=== PATIENT | male | born 1990 | race African-American/Black ===

== ENCOUNTER 2016-08-03 10:10 | Outpatient (CLI) | payer MEDICAID ==
[~2016-08-03 10:10] MED LIST: BACTRIM DS 8001 TA1 PO; BACTRIM DS 8001 TAB PO; CONCERTA36 MG PO; DE-CHLOR DM 47473 ML PO; FLEXERIL10 MG PO; KEFLEX 500MG.500 MG PO; MEDROL 4MG. DOSE4 MG PO; MOTRIN600 MG PO; MUPIROCIN2% TP; NOMEDS; PREDNISONE 20MG20 MG PO; PRILOSEC20 M1 PO; THERAFLU1 PDS PO; VOLTAREN75 MG PO; ZOFRAN ODT4 MG PO
== END 2016-08-03 14:23 ==
LOC: ACC 10:10 → LAB 10:10 → ACC 14:23
DX: I26.99 Other pulmonary embolism without acute cor pulmonale (principal); B39.2 Pulmonary histoplasmosis capsulati, unspecified; Z79.01 Long term (current) use of anticoagulants; Z51.81 Encounter for therapeutic drug level monitoring
CPT/HCPCS: G0463

== ENCOUNTER 2016-10-07 09:57 | Emergency (ER) | payer MEDICAID ==
[~2016-10-07] VITALS: Ht 182.9 cm; Wt 117.9 kg
[2016-10-07] MEDS ORDERED: ELIQUIS5 MG PO (10:06)
--- NOTE | 2016-10-07 10:50 | Urgent Treatment Center Report ---
History of Present Issue Date/Time Seen by Provider 10/07/16 1045 Visit Reason Pt arrived:Walked Presenting Problem:YESTERDAY AFTERNOON PT WAS DOING SQUATS WITH WEIGHT WHEN HE FELT LOWER BACK POP AND IS NOW HAVING PAIN IN HIS RIHGT LEG Location if Accident: Onset of symptoms date/time:/ or onset unknown for:MEDICAL HX UNKNOWN Have you (or family members/close friends) recently traveled outside the [place]? N If Yes, where/when: Have you had exposure to infectious disease within the past month? TB? Other? Specify: Source patient, RN notes reviewed Exam Limitations no limitations Comment Patient was lifting weights yesterday. Was squatting 450# and felt a pop in his low back. Pain radiates down his right leg and leg feels numb. No prior history of low back injury. Was unable to get comfortable last night. No position was comfortable. Denies loss of bowel or bladder control. 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 ALLERGIES Coded Allergies: No Known Allergies (07/28/16) Home Medications Reported Medications Apixaban (Eliquis) 5 MG PO DAILY History Medical History General CAD? No Angina: Yes [place]: No Hypertension? No Hyperlipidemia? No CHF? No DVT? No PE? Yes COPD? No Asthma? No Anemia? No GERD? No Gastric ulcers? No GI Bleed? No Hernia? No Thyroid Problems? No Hypothyroidism? No CVA? No Seizures? No Diabetes? No Insulin Dependent: No Insulin Pump: No Home FSBS? No Renal Insuffiency? No UTI? No Stones? No BPH? No GB Disease: No Nephritic Syndrome? No Asplenia? No Hepatitis? No Sickle Cell Disease? No Arthritis? No Migraines? No Cataracts? No Glaucoma? No MRSA? No HIV? No TB? No Anxiety? No Depression? No Cancer? No More? Yes Additional hx: MYOCARDIITIS, SACRODOSIS Immunization HX DT/Tetanus 1-4 YRS Flu NEVER Pneumonia NEVER Surgical Hx Previous Surgery?Y HEART CATH Family History Family HX Diabetes No CAD No Hypertension No Hyperlipidemia No Cancer Yes TB No Social History Smoking Hx Smoker: Former Smoker Tobacco: No Packs/day < 1 Pack Alcohol Alcohol: No Review of Systems All Other Systems Reviewed and Negative Musculoskeletal see HPI, back pain Physical Exam Vital Signs Vital Signs Date Time Temp Pulse Resp B/P Pulse O2 O2 Flow FiO2 Ox Delivery Rate 10/07 1003 97.1 65 16 152/99 98 General Appearance normal appearance, no apparent distress Respiratory Status No: respiratory distress, chest symmetrical. Lung Sounds bilateral: normal breath sounds, lungs clear. Cardiovascular normal exam, regular rate/rhythm, no peripheral edema, no murmur Peripheral Pulses Pulses normal Yes Back no vertebral tenderness, strt leg raising(R)-ABNL, decreased range of motion, gait abnormality, muscle spasm, strt leg raising(L)-NML Extremities no calf tenderness, no pedal edema Neurologic alert, abnormal cerebellar tests Medical Decision Making LABS/Meds/Orders Pt receiving controlled substance in ED? No Results/Orders Current Medication Orders Sig/Rony Start time Last Medication Dose Route Stop Time Status Admin Methylprednisolone 0 .STK-MED ONE 10/07 1053 DC Acetate IM Methylprednisolone 0 .STK-MED ONE 10/07 1052 DC Acetate IM Dexamethasone Sodium 0 .STK-MED ONE 10/07 1050 DC Phosphate .ROUTE Dexamethasone Sodium 4 MG ONCE ONE 10/07 1045 DC 10/07 Phosphate IM 10/07 1046 1059 Methylprednisolone 80 MG ONCE ONE 10/07 1045 DC 10/07 Acetate IM 10/07 1046 1100 Orders Procedure Date/time Status LUMBAR SPINE 5 VIEWS 10/07 1009 Active XRAY/CT/US XRAY/CT/US XRAY L-spine XR interpretation by reviewed by me Xray Results no fracture seen, DDD L5/S1 Departure Departure Time of Disposition 1110 Disposition DC Home or Self Care(routine) Clinical Impression Primary Impression: Low back pain Secondary Impressions: Sciatica, right side Condition STABLE Referrals Darwin VALDEZ,Jae (Family): 2 Days-Call Office Patient Instructions DI for Low Back Pain Additional Instructions Rest. No lifting. Ice. Avoids NSAIDs due to Eliquis Discharge Counseling Counseled pt/family regarding diagnosis, test results, medications/RX, follow up needs Prescriptions Current Visit Scripts Methylprednisolone (Medrol Dose Luis) 4 MG PO UD #1 LUIS TAKE DIRECTED ON PACKAGING Cyclobenzaprine Hcl (Flexeril) 10 MG PO TID #30 TAB at 1115
[2016-10-07] MEDS ORDERED: FLEXERIL10 MG PO (11:13)
[2016-10-07] MEDS ORDERED: MEDROL 4MG. DOSE4 MG PO (11:13)
[2016-10-07 11:23] VITALS: BP 152/99
--- NOTE | 2016-10-07 13:20 | RADIOLOGY REPORT PS360 ---
LUMBAR SPINE 5 VIEWS COMPARISON: Lumbar spine 01/05/2015 HISTORY: Fell popping sensation in back TECHNIQUE: AP lateral and oblique views and spot view lumbosacral junction FINDINGS: There is some straightening of the normal curvature suggesting muscle spasm. All lumbar vertebrae appear intact and disc spaces are well maintained throughout. There is no pars defect. The SI joints appear normal. IMPRESSION: Findings of mild muscle spasm, no bony abnormality seen
== END 2016-10-07 11:24 | disposition home or self-care (01) ==
LOC: UTC 09:57
DX: M54.5 Low back pain (principal); M54.31 Sciatica, right side
CPT/HCPCS: J1040

== ENCOUNTER 2017-03-20 21:04 | Emergency (ER) | payer MEDICAID ==
[~2017-03-20] VITALS: Ht 182.9 cm; Wt 113.4 kg
[~2017-03-20 21:04] MED LIST changes: +ELIQUIS5 MG PO
--- NOTE | 2017-03-20 21:16 | Emergency Room Report ---
History of Present Illness Time Seen by 2102 Presenting Problem in Triage Pt arrived:Walked Presenting Problem:C/O MID CHEST PAIN INTERMITTENT IN NATURE WITH SOB AND BODY ACHES. 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 Y Clinical Suspician of Infection? Y Mental Status: 1 - Regular (Normal Baseline) Sepsis Risk:Possible Sepsis Risk Have you (or family members/close friends) recently traveled outside the [place]? N If Yes, where/when: Have you had exposure to infectious disease within the past month? N TB? Other? Specify: Source patient, RN notes reviewed, family, old records Exam Limitations no limitations Comment prod cough with congestion and ant chest pain which started tonight Cardiac Chest Pain Chest pain indicative of cardiac No Timing/Duration this evening Severity moderate ALLERGIES Coded Allergies: No Known Allergies (07/28/16) History Medical History General CAD? No Angina: Yes [place]: No Hypertension? No Hyperlipidemia? No CHF? No DVT? No PE? Yes COPD? No Asthma? No Anemia? No GERD? No Gastric ulcers? No GI Bleed? No Hernia? No Thyroid Problems? No Hypothyroidism? No CVA? No Seizures? No Diabetes? No Insulin Dependent: No Insulin Pump: No Home FSBS? No Renal Insuffiency? No End Stage Renal Disease? No UTI? No Stones? No BPH? No GB Disease: No Nephritic Syndrome? No Asplenia? No Hepatitis? No Sickle Cell Disease? No Arthritis? No Migraines? No Cataracts? No Glaucoma? No MRSA? No HIV? No TB? No Anxiety? No Depression? No Cancer? No More? Yes Additional hx: MYOCARDIITIS, SACRODOSIS Immunization Hx DT/Tetanus 1-4 YRS Flu NEVER Pneumonia NEVER Surgical Hx Previous Surgery?Y HEART CATH Family History Family Hx Diabetes No CAD No Hypertension No Hyperlipidemia No Cancer Yes TB No Social History Smoking Hx Smoker: Current Every Day Smoker Tobacco: Yes Type Cigarettes Packs/day < 1 Pack Alcohol Alcohol: No Drugs none Additionial History Additional History has hx of histo Review of Systems All Other Systems Reviewed and Negative Constitutional see HPI, fever Eyes denies drainage ENT denies: ear discharge, epistaxis, throat pain. Respiratory cough, denies shortness of breath, denies wheezing Cardiovascular chest pain, denies palpitations, denies syncope Gastrointestinal denies abdominal pain, denies diarrhea, denies vomiting Genitourinary denies: dysuria, frequency, hesitancy, hematuria. Musculoskeletal denies back pain, denies joint pain, denies joint swelling, denies neck pain Skin denies rash Psychiatric/Neurological denies headache, denies seizure Physical Exam Vital Signs Vital Signs Date Time Temp Pulse Resp B/P Pulse O2 O2 Flow FiO2 Ox Delivery Rate 03/20 2108 100.0 102 20 152/87 97 - WBC >12,000 or <4,000 or 10% bands? 2 or more SIRS Criteria Met? B/P:152/87 MAP:108 Creatinine >2.0? UA output<0.5ml/kg/hr for 2 hrs? Platelet count >100,000? Lactate >2.0mmol/1? INR >1.2 or PTT > than 60 sec? Evidence of Organ Dysfunction? Provider documented clinical suspician of infection? Y Sepsis Criteria Count: 2 Sepsis Risk: Possible Sepsis Risk General Appearance no apparent distress Eye Exam - bilateral eye PERRL, bilateral eye EOMI Ear, Nose, Throat normal ENT inspection Neck supple Respiratory Status No: respiratory distress. Lung Sounds bilateral: rhonchi. 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 No Results/Orders Laboratory Tests 03/20/172114: Sodium 141, Potassium 3.3 L, Chloride 104, Carbon Dioxide 26, BUN 12, Creatinine 1.3, Estimated Creat Clear 139, Estimated GFR (MDRD) 67, Glucose 106, Calcium 8.4 L, Total Bilirubin 0.6, AST 29, ALT 33, Alkaline Phosphatase 150 H , Creatine Kinase 192, CK-MB (CK-2) Rel Index 0.3, CK and CKMB Interp < 0.5, Troponin I < 0.02, Total Protein 7.5, Albumin 3.7, Globulin 3.8 H, Albumin/ Globulin Ratio 1.0 L, WBC 13.2 H, RBC 5.73, Hgb 16.3, Hct 47.1, MCV 82.3, RDW 12.7, Plt Count 190, MPV 8.0, Gran % 83.2 H, Gran # 11.0 H, Lymphocytes % 10.1 , Monocytes % 4.9, Eosinophils % 1.4, Basophils % 0.4, Lymphocytes # 1.3, Monocytes # 0.6, Eosinophils # 0.2, Basophils # 0.1, PUBS MCHC 34.7, MCH 28.5 Current Medication Orders Sig/Rony Start time Last Medication Dose Route Stop Time Status Admin Acetaminophen 0 .STK-MED ONE 03/20 2159 DC PO Ceftriaxone Sodium 0 .STK-MED ONE 03/20 2146 DC IV Levofloxacin 0 .STK-MED ONE 03/20 2146 DC .ROUTE Methylprednisolone 0 .STK-MED ONE 03/20 2146 DC Sodium Succinate .ROUTE Sodium Chloride 50 ML .STK-MED ONE 03/20 2146 DC IV Acetaminophen 650 MG ONCE ONE 03/20 2145 DC 03/20 PO 03/20 Ceftriaxone Sodium 1 GM ONCE ONE 03/20 2145 AC 03/20 Sodium Chloride 50 ML IV 03/20 Levofloxacin 500 MG ONCE ONE 03/20 2145 DC 03/20 PO 03/20 Methylprednisolone 125 MG ONCE ONE 03/20 2145 DC 03/20 Sodium Succinate IV 03/20 Aspirin 324 MG ONCE ONE 03/20 2115 DC 03/20 PO 03/20 Sodium Chloride 10 ML PRN PRN 03/20 2115 AC IV 03/21 2108 Orders Procedure Date/time Status CHEST(2 VIEWS-NOT PORTABLE) 03/20 2108 Active IV SALINE LOCK 03/20 2108 Active 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 ST/Twave chgs XRAY/CT/US XRAY/CT/US XRAY chest XR interpretation by reviewed by Xray Results abnormal (histo) Departure Departure Time of Disposition 2207 Disposition DC Home or Self Care(routine) Clinical Impression Primary Impression: Bronchitis Condition STABLE Referrals Jae Granados MD (Family) Patient Instructions DI for Cough -- Adult Additional Instructions use meds and fluids and see pcp for follow up Discharge Counseling Counseled pt/family regarding diagnosis, test results, medications/RX, follow up needs Prescriptions Current Visit Scripts Azithromycin (Zithromycin (Z-SOBEIDA) 250MG Tab) 250 MG PO DAILY #6 TAB TAKE TWO (2) TABLETS ON DAY 1, THEN ONE (1) TABLET DAY #2 THRU #5 Prednisone (Prednisone 20MG) 20 MG PO BID #10 TAB BENZONATATE (Benzonatate) 100 MG PO TID #15 CAP ED Critical Care Critical Care No at 2210
--- NOTE | 2017-03-20 21:16 | Emergency Room Report ---
History of Present Illness Time Seen by 2102 Presenting Problem in Triage Pt arrived:Walked Presenting Problem:C/O MID CHEST PAIN INTERMITTENT IN NATURE WITH SOB AND BODY ACHES. 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 Y Clinical Suspician of Infection? Y Mental Status: 1 - Regular (Normal Baseline) Sepsis Risk:Possible Sepsis Risk Have you (or family members/close friends) recently traveled outside the [place]? N If Yes, where/when: Have you had exposure to infectious disease within the past month? N TB? Other? Specify: Source patient, RN notes reviewed, family, old records Exam Limitations no limitations Comment prod cough with congestion and ant chest pain which started tonight Cardiac Chest Pain Chest pain indicative of cardiac No Timing/Duration this evening Severity moderate ALLERGIES Coded Allergies: No Known Allergies (07/28/16) History Medical History General CAD? No Angina: Yes [place]: No Hypertension? No Hyperlipidemia? No CHF? No DVT? No PE? Yes COPD? No Asthma? No Anemia? No GERD? No Gastric ulcers? No GI Bleed? No Hernia? No Thyroid Problems? No Hypothyroidism? No CVA? No Seizures? No Diabetes? No Insulin Dependent: No Insulin Pump: No Home FSBS? No Renal Insuffiency? No End Stage Renal Disease? No UTI? No Stones? No BPH? No GB Disease: No Nephritic Syndrome? No Asplenia? No Hepatitis? No Sickle Cell Disease? No Arthritis? No Migraines? No Cataracts? No Glaucoma? No MRSA? No HIV? No TB? No Anxiety? No Depression? No Cancer? No More? Yes Additional hx: MYOCARDIITIS, SACRODOSIS Immunization Hx DT/Tetanus 1-4 YRS Flu NEVER Pneumonia NEVER Surgical Hx Previous Surgery?Y HEART CATH Family History Family Hx Diabetes No CAD No Hypertension No Hyperlipidemia No Cancer Yes TB No Social History Smoking Hx Smoker: Current Every Day Smoker Tobacco: Yes Type Cigarettes Packs/day < 1 Pack Alcohol Alcohol: No Drugs none Additionial History Additional History has hx of histo Review of Systems All Other Systems Reviewed and Negative Constitutional see HPI, fever Eyes denies drainage ENT denies: ear discharge, epistaxis, throat pain. Respiratory cough, denies shortness of breath, denies wheezing Cardiovascular chest pain, denies palpitations, denies syncope Gastrointestinal denies abdominal pain, denies diarrhea, denies vomiting Genitourinary denies: dysuria, frequency, hesitancy, hematuria. Musculoskeletal denies back pain, denies joint pain, denies joint swelling, denies neck pain Skin denies rash Psychiatric/Neurological denies headache, denies seizure Physical Exam Vital Signs Vital Signs Date Time Temp Pulse Resp B/P Pulse O2 O2 Flow FiO2 Ox Delivery Rate 03/20 2108 100.0 102 20 152/87 97 - WBC >12,000 or <4,000 or 10% bands? 2 or more SIRS Criteria Met? B/P:152/87 MAP:108 Creatinine >2.0? UA output<0.5ml/kg/hr for 2 hrs? Platelet count >100,000? Lactate >2.0mmol/1? INR >1.2 or PTT > than 60 sec? Evidence of Organ Dysfunction? Provider documented clinical suspician of infection? Y Sepsis Criteria Count: 2 Sepsis Risk: Possible Sepsis Risk General Appearance no apparent distress Eye Exam - bilateral eye PERRL, bilateral eye EOMI Ear, Nose, Throat normal ENT inspection Neck supple Respiratory Status No: respiratory distress. Lung Sounds bilateral: rhonchi. 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 No Results/Orders Laboratory Tests 03/20/172114: Sodium 141, Potassium 3.3 L, Chloride 104, Carbon Dioxide 26, BUN 12, Creatinine 1.3, Estimated Creat Clear 139, Estimated GFR (MDRD) 67, Glucose 106, Calcium 8.4 L, Total Bilirubin 0.6, AST 29, ALT 33, Alkaline Phosphatase 150 H , Creatine Kinase 192, CK-MB (CK-2) Rel Index 0.3, CK and CKMB Interp < 0.5, Troponin I < 0.02, Total Protein 7.5, Albumin 3.7, Globulin 3.8 H, Albumin/ Globulin Ratio 1.0 L, WBC 13.2 H, RBC 5.73, Hgb 16.3, Hct 47.1, MCV 82.3, RDW 12.7, Plt Count 190, MPV 8.0, Gran % 83.2 H, Gran # 11.0 H, Lymphocytes % 10.1 , Monocytes % 4.9, Eosinophils % 1.4, Basophils % 0.4, Lymphocytes # 1.3, Monocytes # 0.6, Eosinophils # 0.2, Basophils # 0.1, PUBS MCHC 34.7, MCH 28.5 Current Medication Orders Sig/Rony Start time Last Medication Dose Route Stop Time Status Admin Acetaminophen 0 .STK-MED ONE 03/20 2159 DC PO Ceftriaxone Sodium 0 .STK-MED ONE 03/20 2146 DC IV Levofloxacin 0 .STK-MED ONE 03/20 2146 DC .ROUTE Methylprednisolone 0 .STK-MED ONE 03/20 2146 DC Sodium Succinate .ROUTE Sodium Chloride 50 ML .STK-MED ONE 03/20 2146 DC IV Acetaminophen 650 MG ONCE ONE 03/20 2145 DC 03/20 PO 03/20 Ceftriaxone Sodium 1 GM ONCE ONE 03/20 2145 AC 03/20 Sodium Chloride 50 ML IV 03/20 Levofloxacin 500 MG ONCE ONE 03/20 2145 DC 03/20 PO 03/20 Methylprednisolone 125 MG ONCE ONE 03/20 2145 DC 03/20 Sodium Succinate IV 03/20 Aspirin 324 MG ONCE ONE 03/20 2115 DC 03/20 PO 03/20 Sodium Chloride 10 ML PRN PRN 03/20 2115 AC IV 03/21 2108 Orders Procedure Date/time Status CHEST(2 VIEWS-NOT PORTABLE) 03/20 2108 Active IV SALINE LOCK 03/20 2108 Active 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 ST/Twave chgs XRAY/CT/US XRAY/CT/US XRAY chest XR interpretation by reviewed by Xray Results abnormal (histo) Departure Departure Time of Disposition 2207 Disposition DC Home or Self Care(routine) Clinical Impression Primary Impression: Bronchitis Condition STABLE Referrals Jae Granados MD (Family) Patient Instructions DI for Cough -- Adult Additional Instructions use meds and fluids and see pcp for follow up Discharge Counseling Counseled pt/family regarding diagnosis, test results, medications/RX, follow up needs Prescriptions Current Visit Scripts Azithromycin (Zithromycin (Z-SOBEIDA) 250MG Tab) 250 MG PO DAILY #6 TAB TAKE TWO (2) TABLETS ON DAY 1, THEN ONE (1) TABLET DAY #2 THRU #5 Prednisone (Prednisone 20MG) 20 MG PO BID #10 TAB BENZONATATE (Benzonatate) 100 MG PO TID #15 CAP ED Critical Care Critical Care No at 2210
[2017-03-20 21:31] LABS: HEMOGLOBIN 16.3 g/dL (14.1-18.0); LYMPH # 1.3 K/mm3 (0.7-4.5); LYMPH % 10.1 % (10-50)
[2017-03-20 21:52] LABS: BUN 12 mg/dL (7-18)
[2017-03-20 21:53] LABS: GFR (ESTIMATED) 67 ML/MIN (>60)
[2017-03-20] MEDS ORDERED: TESSALON PERLE100 MG PO (22:09)
[2017-03-20] MEDS ORDERED: PREDNISONE 20MG20 MG PO (22:09)
[2017-03-20] MEDS ORDERED: ZITHROMAX Z PA250 MG PO (22:09)
[2017-03-20 22:20] VITALS: BP 153/79
--- NOTE | 2017-03-21 05:23 | RADIOLOGY REPORT PS360 ---
CHEST(2 VIEWS-NOT PORTABLE) HISTORY: C/O CHEST PAIN ORDERING PHYSICIAN: Tania Davis MD PATIENT AGE: 27 years COMPARISON: 07/28/2016 FINDINGS: Unremarkable cardiovascular structures. There is vascular crowding in the lung bases. This had a similar appearance on the previous exam. No lobar consolidation or collapse. No significant change small bilateral pulmonary nodules recently described on chest CT.. No acute bony findings IMPRESSION: No change, no acute finding. Scattered small bilateral pulmonary nodules unchanged
[2017-04-02] MEDS ORDERED: IBUPROFEN800 MG PO (12:30)
== END 2017-03-20 22:21 | disposition home or self-care (01) ==
LOC: ER 21:04
PROVIDERS: Emergency Medicine
DX: J20.9 Acute bronchitis, unspecified (principal); Z72.0 Tobacco use

== ENCOUNTER → 2017-06-24 | Outpatient (CLI) | payer MEDICAID ==
[~2017-06-24] MED LIST changes: +IBUPROFEN800 MG PO; +TESSALON PERLE100 MG PO; +ZITHROMAX Z PA250 MG PO
--- NOTE | 2017-06-25 08:59 | RADIOLOGY REPORT PS360 ---
MRI-UP EXT OTH THN JNT W/O-RT CLINICAL INDICATION: Right hand pain following injury with pain and swelling of the second through fifth metacarpal phalangeal joints RIGHT HAND PAIN ORDERING PHYSICIAN: ROULA ALVAREZ PATIENT AGE: 27 years COMPARISON: Radiograph of 05/23/2017 FINDINGS: No fracture or bone bruise evident. The metacarpal phalangeal joints have an unremarkable appearance. No obvious ligamentous injury or tendinous injury no avulsion fractures. No erosive changes or bone marrow edema. There is only a small amount of fluid noted along the volar and aspect of the distal of the third metacarpal nonspecific. No soft tissue masses. IMPRESSION: There is minimal amount fluid along the volar aspect and distal aspect of the third metacarpal which is of questioned clinical significance. Otherwise negative MRI of the right
== END ==
LOC: RAD 06-21 14:30
DX: M79.641 Pain in right hand (principal)